=== PATIENT | female | born 1945 | race Caucasian/White ===

== ENCOUNTER → 2017-04-07 | Outpatient (CLI) | payer OTHER ==
[~2017-04-07] MED LIST: LEVOXYL75 MCG PO; PLAQUENIL; SINGULAIR10 MG PO
== END | disposition home or self-care (01) ==
LOC: PPH VACUNA 12:47
DX: Z23 Encounter for immunization (principal)

== ENCOUNTER 2017-07-14 10:57 | Outpatient (CLI) | payer OTHER | END 2017-07-14 12:45 | disposition home or self-care (01) | LOC: RAD 501 10:57 | DX: R05 Cough (principal) ==

== ENCOUNTER → 2018-07-11 08:17 | Outpatient (CLI) | payer OTHER | END | disposition home or self-care (01) | LOC: LAB 08:17 | DX: D49.0 Neoplasm of unspecified behavior of digestive system (principal) ==

== ENCOUNTER 2018-07-11 08:54 | Outpatient (CLI) | payer OTHER | END 2018-07-11 17:00 | disposition home or self-care (01) | LOC: TOM 08:54 | DX: K22.4 Dyskinesia of esophagus (principal); R10.13 Epigastric pain; R13.10 Dysphagia, unspecified; D49.0 Neoplasm of unspecified behavior of digestive system | CPT/HCPCS: 71260; Q9965 ==

== ENCOUNTER 2019-11-06 11:46 | Outpatient (CLI) | payer OTHER | END 2019-11-06 11:52 | disposition home or self-care (01) | LOC: RAD 11:46 | PROVIDERS: ATTEND Internal Medicine Pulmonary Disease | DX: R05 Cough (principal); J90 Pleural effusion, not elsewhere classified ==

== ENCOUNTER 2020-10-30 08:00 | Outpatient (CLI) | payer OTHER | END 2020-10-30 08:30 | disposition home or self-care (01) | LOC: PPH VACUNA 08:00 | PROVIDERS: ATTEND Emergency Medicine Pediatric Emergency Medicine | DX: Z23 Encounter for immunization (principal) ==

== ENCOUNTER 2021-06-02 16:56 | Outpatient (CLI) | payer OTHER | END 2021-06-02 17:00 | disposition home or self-care (01) | LOC: RAD 16:56 | PROVIDERS: ATTEND Obstetrics & Gynecology Gynecology | DX: M25.562 Pain in left knee (principal) ==

== ENCOUNTER 2021-07-03 13:10 | Outpatient (CLI) | payer OTHER | END 2021-07-03 13:11 | disposition home or self-care (01) | LOC: MRI 13:10 | PROVIDERS: ATTEND Obstetrics & Gynecology Gynecology | DX: M25.9 Joint disorder, unspecified (principal); M25.569 Pain in unspecified knee; R60.0 Localized edema | CPT/HCPCS: 73721 ==

== ENCOUNTER 2021-11-03 09:06 | Outpatient (CLI) | payer OTHER | END 2021-11-03 09:10 | disposition home or self-care (01) | LOC: RAD 09:06 | PROVIDERS: ATTEND Orthopaedic Surgery Adult Reconstructive Orthopaedic Surgery | DX: Z96.652 Presence of left artificial knee joint (principal); I11.9 Hypertensive heart disease without heart failure ==

== ENCOUNTER 2022-01-07 08:11 | Outpatient (CLI) | payer OTHER | END 2022-01-07 08:18 | disposition home or self-care (01) | LOC: RAD 08:11 | PROVIDERS: ATTEND Obstetrics & Gynecology Gynecology | DX: S29.9XXA Unspecified injury of thorax, initial encounter (principal) ==

== ENCOUNTER 2022-03-23 13:06 | Outpatient (CLI) | payer OTHER | END 2022-03-23 13:10 | disposition home or self-care (01) | LOC: RAD 13:06 | PROVIDERS: ATTEND Orthopaedic Surgery Adult Reconstructive Orthopaedic Surgery | DX: Z96.652 Presence of left artificial knee joint (principal) ==

== ENCOUNTER 2023-01-22 11:22 | Outpatient (CLI) | payer OTHER | END 2023-01-22 11:24 | disposition home or self-care (01) | LOC: RAD 11:22 | PROVIDERS: ATTEND Specialist | DX: R05.3 Chronic cough (principal) ==

== ENCOUNTER 2023-03-08 11:48 | Outpatient (CLI) | payer OTHER ==
[2023-03-08 14:29] LABS: CREATININE SERUM 0.9 mg/dL (0.55-1.02); GFR 60.71
== END 2023-03-08 11:56 | disposition home or self-care (01) ==
LOC: LAB 11:48
PROVIDERS: ATTEND Radiology Diagnostic Radiology
DX: R42 Dizziness and giddiness (principal); M54.2 Cervicalgia

== ENCOUNTER 2023-03-10 08:20 | Outpatient (CLI) | payer OTHER | END 2023-03-10 08:25 | disposition home or self-care (01) | LOC: MRI 08:20 | PROVIDERS: ATTEND Obstetrics & Gynecology Gynecology | DX: R42 Dizziness and giddiness (principal); M54.2 Cervicalgia; Z85.850 Personal history of malignant neoplasm of thyroid; F43.20 Adjustment disorder, unspecified | CPT/HCPCS: 70543; 70553 ==

== ENCOUNTER 2023-10-13 09:19 | Outpatient (CLI) | payer OTHER | END 2023-10-13 09:20 | disposition home or self-care (01) | LOC: NUCLEAR 09:19 | PROVIDERS: ATTEND Internal Medicine Cardiovascular Disease | DX: I49.5 Sick sinus syndrome (principal) ==

== ENCOUNTER 2024-03-15 11:53 | Outpatient (CLI) | payer OTHER | END 2024-03-15 11:55 | disposition home or self-care (01) | LOC: MAMO-SONO 11:53 | PROVIDERS: ATTEND Psychiatry & Neurology Clinical Neurophysiology | DX: G11.2 Late-onset cerebellar ataxia (principal) | CPT/HCPCS: 70551 ==

== ENCOUNTER 2024-11-08 15:15 | Emergency (ER) | payer OTHER ==
[~2024-11-08] VITALS: Ht 167.6 cm; Wt 72.6 kg
[2024-11-08 15:42] VITALS: BP 1147/77; O2SAT 96
[2024-11-08] MEDS ORDERED: 0.9 % SODIUM CHLORIDE 1,000 ML IV STA (16:05)
[2024-11-08] MEDS ORDERED: ONDANSETRON HCL 2 MG/ML VIAL ONE (16:26)
[2024-11-08] MEDS ORDERED: ONDANSETRON HCL 2 MG/ML VIAL IV ONE (16:45)
[2024-11-08 17:21] LABS: ALT/SGPT 21.0 U/L (12-78); AST/SGOT 25.0 U/L (15-37); BILIRUBIN TOTAL 0.57 mg/dL (0.3-1.2); BUN CREA RATIO 19.0 (7.0-25.0); CREATININE SERUM 0.88 mg/dL (0.55-1.02); GFR 62.14; GLOBULINA 3.0 G/DL (2.4-3.5); GLUCOSE FASTING 130.0 mg/dL (65-100); OSMOLALITY SERUM 286.0 MOSM/KG (275-295); PHOSPHOKINASE CREATININE 204.0 U/L (26-192)
[2024-11-08 17:29] LABS: BASO % 0.1 % (0.1-1.2); EOS # 0.01 (0.04-0.54); EOS % 0.1 % (0.7-7.0); LYMPH # 0.74 (1.18-3.74); LYMPH % 6.0 % (19.3-53.1); MEAN PLATELET VOLUME 10.30 fl (9.4-12.4); MONO # 0.52 (0.24-0.82); MONO % 4.2 % (4.7-12.5); NEUT # 10.98 (1.56-6.13); NEUT % 89.3 % (34.0-71.1); RED CELL DISTRIBUTION WIDTH 13.4 % (11.6-14.4)
[2024-11-08 17:57] LABS: URINE APPEARANCE Clear; URINE BILIRRUBIN Negative (NEGATIVE); URINE BLOOD Negative; URINE COLOR Yellow; URINE GLUCOSE Negative (NEGATIVE); URINE KETONE Negative (NEGATIVE); URINE LEUKOCYTE Negative; URINE NITRATE Negative; URINE PROTEIN Negative (NEGATIVE); URINE UROBILINOGEN 0.2 E.U./dl
[2024-11-08 18:01] LABS: URINE BACTERIA 29.9 uL (0.0-1933); URINE EPITHELIAL CELLS 3.5 uL (0.0-38.8); URINE RBC 7.7 uL (0.0-20.8); URINE WBC 4.9 uL (0.0-23.2)
[2024-11-08 18:43] LABS: URINE CAST 0.00 uL (0.0-1.40)
== END 2024-11-08 19:12 | disposition home or self-care (01) ==
LOC: ER 15:15
PROVIDERS: General Practice
DX: R55 Syncope and collapse (principal); Z88.8 Allergy status to other drugs, medicaments and biological substances

== ENCOUNTER 2024-12-07 12:53 | Outpatient (CLI) | payer OTHER | END 2024-12-07 12:57 | disposition home or self-care (01) | LOC: RAD 12:53 | DX: M79.671 Pain in right foot (principal) ==

== ENCOUNTER 2024-12-13 09:52 | Outpatient (CLI) | payer OTHER | END 2024-12-13 09:58 | disposition home or self-care (01) | LOC: RAD 09:52 | PROVIDERS: ATTEND Physical Medicine & Rehabilitation | DX: M54.50 Low back pain, unspecified (principal) ==